=== PATIENT | female | born 1960 | race Caucasian/White ===

== ENCOUNTER 2022-03-11 11:03 | Outpatient (CLI) | payer OTHER | END 2022-03-11 11:04 | disposition home or self-care (01) | LOC: CSHMAMMO 11:03 | PROVIDERS: ATTEND Family Medicine | DX: Z12.31 Encounter for screening mammogram for malignant neoplasm of breast (principal); N63.20 Unspecified lump in the left breast, unspecified quadrant | CPT/HCPCS: 77063; 77067 ==

== ENCOUNTER 2022-03-19 14:05 | Outpatient (CLI) | payer OTHER | END 2022-03-19 14:06 | disposition home or self-care (01) | LOC: CSHMAMMO 14:05 | PROVIDERS: ATTEND Family Medicine | DX: N63.20 Unspecified lump in the left breast, unspecified quadrant (principal) | CPT/HCPCS: G0279 ==